=== PATIENT | male | born 1960 | race Caucasian/White ===

== ENCOUNTER 2018-01-29 16:20 | Emergency (ER) | payer OTHER ==
[~2018-01-29] VITALS: Ht 175.3 cm; Wt 114.0 kg
[~2018-01-29 16:20] MED LIST: AMIODARONE HCL 50MG/ML 3ML VIAL IV ONE; ATROPINE SULFATE 1MG/10ML SYR ONE; CALCIUM CHLORIDE 1GM/10ML SYR IV ONE; EPINEPHRINE 0.1MG/ML (1:10,000) 10ML SYR ONE; ETOMIDATE 2MG/ML 10ML VIAL IV ONE; SODIUM BICARBONATE 7.5% 0.9 MEQ/ML 50ML SYR IV ONE; SUCCINYLCHOLINE CHLORIDE 200MG/10ML VIAL IV ONE
[2018-01-29] MEDS ORDERED: SODIUM CHLORIDE 0.9% 1,000 ML IV ONE ×2 (16:44→17:00)
[2018-01-29] MEDS ORDERED: AMIODARONE HCL 900 MG in DEXT 5% WATER 482 ML IV PRN ×2 (16:45→17:30)
[2018-01-29 16:58] LABS: BASOPHILS % 0.3 % (0.0-2.0); EOSINOPHILS % 0.1 % (0.0-5.0); HEMATOCRIT. 41.1 % (42.0-52.0); HEMOGLOBIN. 14.2 g/dL (14.0-18.0); LYMPHOCYTES % 19.8 % (20.0-50.0); MEAN CORPUSCULAR HEMOGLOBIN 31.3 pg (28.0-32.0); MEAN CORPUSCULAR VOLUME 90.6 fL (80.0-94.0); MEAN PLATELET VOLUME 7.9 fl (7.4-10.4); MONOCYTES % 4.2 % (2.0-8.0); NEUTROPHILS % 75.6 % (40.0-76.0); PLATELET 234 x1000/uL (130-400); RED BLOOD CELL COUNT 4.54 mill/uL (4.7-6.1); RED CELL DISTRIBUTION WIDTH 13.5 % (11.6-14.6)
[2018-01-29] MEDS ORDERED: MIDAZOLAM HCL 50 MG in DEXTROSE 5% WATER 40 ML IV ONE ×2 (17:00→17:30)
[2018-01-29] MEDS ORDERED: MIDAZOLAM HCL 2 MG/2 ML VIAL IV ONE ×2 (17:00→17:45)
[2018-01-29 17:04] LABS: PARTIAL THROMBOPLASTIN TIME 20.5 sec (23.4-31.0); PROTHROMBIN TIME 10.5 sec (9.4-11.6)
[2018-01-29 17:05] LABS: ETHANOL BLOOD < 10 mg/dL
[2018-01-29] MEDS ORDERED: ASPI-1159 PO (17:06)
[2018-01-29] MEDS ORDERED: LISI10TA5 PO (17:06)
[2018-01-29] MEDS ORDERED: ATOR40TA70 PO (17:06)
[2018-01-29 17:07] LABS: BG BASE EXCESS -15.1 mmol/L (-2.0-2.0); BG CARBOXYHEMOGLOBIN 0.3 % (0.5-1.5); BG DEOXYHEMOGLOBIN 0.7 % (0.0-5.0); BG FRACTION INSPIRED OXYGEN 100; BG METHEMOGLOBIN 0.1 % (0.0-1.5); BG OXYGEN SATURATION 99.3 % (92.0-98.5); BG OXYHEMOGLOBIN 98.9 % (94.0-97.0); BG PCO2 27.7 mmHg (35.0-45.0); BG PH 7.217 (7.350-7.450); BG PO2 329.6 mmHg (75.0-100.0); BG SAMPLE SITE LEFT RADIAL; BG TIDAL VOLUME(mL) 500 mL; BG TOTAL HEMOGLOBIN 14.6 g/dL (12.0-18.0); BG VENT MODE VENT - A/C; BG VENT RATE 18 set
[2018-01-29 17:29] LABS: CHLORIDE 101 mEq/L (98-107)
[2018-01-29] MEDS ORDERED: MORPHINE SULFATE 4 MG/ML CPJ (NOT FOR IM USE) IV ONE (17:30)
[2018-01-29 17:44] VITALS: BP 105/77
== END 2018-01-29 18:46 | disposition short-term general hospital (02) ==
LOC: ER 16:20 → EDBEDREQSVC 16:48 → ER 18:46 → CANBEDREQ 19:02
DX: I21.19 ST elevation (STEMI) myocardial infarction involving other coronary artery of inferior wall (principal); I46.9 Cardiac arrest, cause unspecified; I49.01 Ventricular fibrillation; R56.9 Unspecified convulsions; I48.91 Unspecified atrial fibrillation; I10 Essential (primary) hypertension; E78.00 Pure hypercholesterolemia, unspecified; Z79.82 Long term (current) use of aspirin; Z95.0 Presence of cardiac pacemaker; Z79.899 Other long term (current) drug therapy
CPT/HCPCS: 31500; 36415; 36600; 71045; 80053; 82375; 82805; 83880; 84484; 85025; 85610; 85730; 92950; 93005; 96365; 96368; 96375; 96376; 99291; G0482; J0282; J0330; J0461; J2250; J2270; J3490; J7030; J7060

== ENCOUNTER 2020-06-03 09:44 | Emergency (ER) | payer OTHER ==
[~2020-06-03] VITALS: Ht 165.1 cm; Wt 79.5 kg
[~2020-06-03 09:44] MED LIST changes: -AMIODARONE HCL 50MG/ML 3ML VIAL IV ONE; +ASPI-1158 PO; +ATOR40TA70 PO; -ATROPINE SULFATE 1MG/10ML SYR ONE; -CALCIUM CHLORIDE 1GM/10ML SYR IV ONE; +CARV25TA47 PO; +CLOP75TA33 PO; -EPINEPHRINE 0.1MG/ML (1:10,000) 10ML SYR ONE; -ETOMIDATE 2MG/ML 10ML VIAL IV ONE; +FURO-151 MT; +LEVO500T2 MT; +LISI-186 PO; -SODIUM BICARBONATE 7.5% 0.9 MEQ/ML 50ML SYR IV ONE; -SUCCINYLCHOLINE CHLORIDE 200MG/10ML VIAL IV ONE
[2020-06-03 10:29] VITALS: BP 132/89
== END 2020-06-03 10:32 | disposition home or self-care (01) ==
LOC: ER 09:44
DX: Z20.828 Contact with and (suspected) exposure to other viral communicable diseases (principal)
CPT/HCPCS: 87426; 99283

== ENCOUNTER 2020-06-05 06:44 | Inpatient (IN) | payer OTHER ==
[2020-06-05] VITALS (10 sets, daily range): BP systolic 99–117; BP diastolic 56–76
[~2020-06-05] VITALS: Ht 165.1 cm; Wt 79.8 kg
[2020-06-05] MEDS ORDERED: MIDAZOLAM HCL 2 MG/2 ML VIAL ONE (07:27)
[2020-06-05] MEDS ORDERED: IODIXANOL 320MG/ML 100 ML BOTTLE IV ONE ×2 (07:27→09:52)
[2020-06-05] MEDS ORDERED: FENTANYL CITRATE/PF 50MCG/ML 2ML VIAL ONE (07:27)
[2020-06-05] MEDS ORDERED: LIDOCAINE HCL 1% 20ML VIAL (Pyxis) INJ ONE (07:27)
[2020-06-05] MEDS ORDERED: HEPARIN SODIUM 1,000 UNIT/1ML VIAL IV ONE (08:00)
[2020-06-05] MEDS ORDERED: CLOPIDOGREL 75MG TABLET ONE (10:10)
[2020-06-05] MEDS ORDERED: ASPIRIN 81MG TABLET ONE (10:10)
[2020-06-05] MEDS ORDERED: ONDANSETRON HCL 4MG/2ML INJ IV PRN (10:30)
[2020-06-05] MEDS ORDERED: ATROPINE SULFATE 1MG/10ML SYR IV PRN (10:30)
[2020-06-05] MEDS ORDERED: ACETAMINOPHEN 325MG TABLET PO PRN (10:30)
[2020-06-05] MEDS: LISINOPRIL 5MG TABLET PO SCH (12:00)
[2020-06-05] MEDS ORDERED: MEDICATION NOT ON FORMULARY EA (Carvedilol 25 MG) PO SCH (17:00)
[2020-06-05] MEDS: CARVEDILOL 12.5MG TABLET PO SCH (20:28)
[2020-06-05] MEDS ORDERED: ZOLPIDEM TARTRATE 5MG TABLET PO PRN (21:00)
[2020-06-05] MEDS ORDERED: ATORVASTATIN CALCIUM 40MG TABLET PO SCH (21:00)
[2020-06-05] MEDS ORDERED: CARVEDILOL 12.5MG TABLET PO SCH (21:00)
[2020-06-06] VITALS: BP 109/73
[2020-06-06 02:00] VITALS: BP 125/82
[2020-06-06 04:00] VITALS: BP 148/76
[2020-06-06 05:49] VITALS: BP 155/81
[2020-06-06 05:52] LABS: CHLORIDE 107 mEq/L (98-107)
[2020-06-06 05:59] LABS: BASOPHILS % 0.5 % (0.0-2.0); HEMATOCRIT. 45.7 % (42.0-52.0); HEMOGLOBIN. 15.4 g/dL (14.0-18.0); LYMPHOCYTES % 25.6 % (20.0-50.0); MEAN CORPUSCULAR HEMOGLOBIN 31.6 pg (28.0-32.0); MEAN CORPUSCULAR VOLUME 93.5 fL (80.0-94.0); MEAN PLATELET VOLUME 7.9 fl (7.4-10.4); NEUTROPHILS % 58.9 % (40.0-76.0); PLATELET 151 x1000/uL (130-400); RED BLOOD CELL COUNT 4.88 mill/uL (4.7-6.1); RED CELL DISTRIBUTION WIDTH 13.8 % (11.6-14.6)
[2020-06-06 07:45] VITALS: BP 145/95
[2020-06-06] MEDS: LISINOPRIL 5MG TABLET PO SCH (08:17)
[2020-06-06] MEDS: CARVEDILOL 12.5MG TABLET PO SCH (08:18)
[2020-06-06 08:23] VITALS: BP 134/88
[2020-06-06] MEDS ORDERED: CLOPIDOGREL 75MG TABLET PO SCH (09:00)
[2020-06-06] MEDS ORDERED: ASPIRIN 325MG TABLET PO SCH (09:00)
== END 2020-06-06 09:41 | disposition home or self-care (01) | DRG 247 ==
LOC: CCL 06:44 → 3WST 06:45
PROVIDERS: ADMIT Specialist; ATTEND Specialist
PROC: 027034Z Dilation of Coronary Artery, One Artery with Drug-eluting Intraluminal Device, Percutaneous Approach (ICD-10-PCS; principal; 2020-06-05)
PROC: 4A023N7 Measurement of Cardiac Sampling and Pressure, Left Heart, Percutaneous Approach (ICD-10-PCS; 2020-06-05)
PROC: B2111ZZ Fluoroscopy of Multiple Coronary Arteries using Low Osmolar Contrast (ICD-10-PCS; 2020-06-05)
PROC: B2151ZZ Fluoroscopy of Left Heart using Low Osmolar Contrast (ICD-10-PCS; 2020-06-05)
DX: I25.10 Atherosclerotic heart disease of native coronary artery without angina pectoris (principal); E78.5 Hyperlipidemia, unspecified; I10 Essential (primary) hypertension; K44.9 Diaphragmatic hernia without obstruction or gangrene; I25.2 Old myocardial infarction; Z82.3 Family history of stroke; Z82.49 Family history of ischemic heart disease and other diseases of the circulatory system
CPT/HCPCS: 36415; 80048; 85025; 85347; 92928; 93005; 93458; C1769; C1874; C1887; C1893; J1644; J2250; J3010; J3490; Q9967

== ENCOUNTER 2022-05-02 09:46 | Emergency (ER) | payer OTHER ==
[~2022-05-02] VITALS: Ht 165.1 cm; Wt 80.0 kg
[~2022-05-02 09:46] MED LIST changes: -ASPI-1158 PO; +ASPI-1406 PO; -FURO-151 MT; -LEVO500T2 MT
[2022-05-02 10:00] VITALS: BP 128/81
[2022-05-02] MEDS ORDERED: CITA20TA19 PO (10:09)
[2022-05-02] MEDS ORDERED: PANT40TA51 PO (10:09)
[2022-05-02 11:46] LABS: CLARITY URINE CLOUDY (CLEAR); COLOR URINE DARK YELLOW (YELLOW); KETONES URINE TRACE (NEGATIVE); LEUKOCYTE ESTERASE URINE 2+ (NEGATIVE); NITRITE URINE POSITIVE (NEGATIVE); OCCULT BLOOD URINE 1+ (NEGATIVE); PROTEIN URINE 1+ (NEGATIVE); SPECIFIC GRAVITY URINE 1.024 (1.005-1.030)
[2022-05-02] MEDS ORDERED: CEPH500C2 MT (12:01)
[2022-05-02] MEDS ORDERED: TAMS-11 MT (12:01)
== END 2022-05-02 12:22 | disposition home or self-care (01) ==
LOC: ER 09:54
DX: N30.00 Acute cystitis without hematuria (principal); R19.7 Diarrhea, unspecified; E78.00 Pure hypercholesterolemia, unspecified; I10 Essential (primary) hypertension; I25.2 Old myocardial infarction; Z79.899 Other long term (current) drug therapy
CPT/HCPCS: 81003; 87077; 87086; 87186; 99283; Z7610